=== PATIENT | male | born 2000 | race African-American/Black ===

== ENCOUNTER 2020-07-09 14:55 | Emergency (ER) | payer MEDICAID, SELFPAY ==
[2020-07-09 14:56] VITALS: BP 120/92; PULSE 93; RESP 18; TEMP 36.4; O2SAT 100; BMI 21.7
--- NOTE | 2020-07-09 16:20 | RAD_ITS ---
STUDY: X-RAY - LEFT HAND REASON FOR EXAM: Male, 19 years old. GLASS IN PALM OF HAND TECHNIQUE: 3 view(s) of the hand. COMPARISON: None. FINDINGS: 2.7 mm triangle shaped radiopaque foreign body projects in the soft tissues between the first and second metatarsal bases on the palmar surface. No visualized fracture. Normal radiocarpal articulation. Normal distal radioulnar joint. Normal visualized carpal bones. Normal carpal articulations Normal carpometacarpal articulation of the thumb. Normal second through fifth carpometacarpal joints. Normal metacarpi. Normal metacarpophalangeal joint of the thumb. Normal interphalangeal joint of the thumb. Normal proximal and distal phalanges of the thumb. Normal metacarpophalangeal joints of the second through fifth fingers. Normal proximal and distal interphalangeal joints of the second through fifth fingers. Normal phalanges of the second through fifth fingers. The soft tissue structures are unremarkable. RAD/Hand Min 3 Views IMPRESSION: 1. 2.7 mm triangle shaped radiopaque foreign body projects in the soft tissues between the first and second metatarsal bases on the palmar surface. No visualized fracture. Electronically Signed: Manny Lind MD at 17:43 EDT , Service support ,
[2020-07-09] MEDS: Diphth,Pertuss(Acell),Tet Vac 0.5 ML Vial IM (17:11)
--- NOTE | 2020-07-09 17:18 | ED.VIS.GEN ---
History of Present Illness Chief Complaint: Foreign Body Informant: Patient Onset: Weeks - 3 Narrative: [id number] male presents for wound check and foreign body concerns of left hand. States sustained injury 3 weeks ago while opening up a beer bottle breaking the glass. He is not on anticoagulations. Tetanus at least 10 years. No fevers, he states he has been digging at it, feels like there is something in there. There is been no drainage or redness. No previous similar symptoms. No past medical history. Prior similar symptoms: No Past Medical History - Allergies and Home Meds Allergies/Adverse Reactions: Allergies No Known Allergies Allergy (Verified 07/09/20 14:58) Primary Care Physician: Care Physician,No Primary [Primary Care Provider] - Past Medical History: None Smoking Status: Current some day smoker Review of Systems General: Denies: Chills, Fever, Sweats Eyes: Denies: Visual changes - bilaterally, Diplopia ENT: Denies: Rhinorrhea, Sore throat Cardiovascular: Denies: Chest pain, Palpitations Respiratory: Denies: Dyspnea, Cough, Dyspnea on exertion Gastrointestinal: Denies: Abdominal pain, Nausea, Vomiting, Diarrhea, Melena, Hematochezia Genitourinary: Denies: Dysuria, Hematuria, Frequency Musculoskeletal: Denies: Back pain, Extremity Pain Skin: Reports: Wounds. Denies: Rash Neurological: Denies: Headache, Weakness, Numbness Physical Exam Vital Signs/Narrative: Vital Signs Temp Pulse Resp BP Pulse Ox 07/09/20 14:56 97.5 F L 93 18 120/92 H 100 General: Well nourished, Well developed, No Acute Distress Head: Normocephalic, Atraumatic Eyes: Perrl, EOMI ENT: Moist mucous membranes, No rhinorrhea Neck: Supple, Nontender Cardiovascular: Regular rate, Regular rhythm, No murmurs Respiratory: No distress, CTA bilaterally, Chest nontender Abdomen: Soft, Nontender, Nondistended, Normal bowel sounds Back: Nontender, Normal Inspection Extremities: Nontender, No edema Skin: Normal color, No rash, - - Left hand: Thenar eminence noted a wound with fibrosis, there is a dark spot in the center of the wound. There is no fluctuance no drainage. No erythema. Neurological: Alert, Oriented x3, Cranial nerves II-XII grossly intact, Normal Strength, Normal Sensation Psychological: Normal affect, Normal Mood Diagnostic/Tx/Re-eval 3 view left hand x-ray reviewed by myself: There is a radiopaque foreign body at the thenar aspect of the hand. - Medical Decision Making Patient is tetanus was updated, there is no signs of infection. X-ray reviewed myself concerns for radiopaque foreign body. I discussed potential signs and symptoms for infection. He is given follow-up with Dr. Soto hand specialist for outpatient follow-up and evaluation. All questions were answered. ED Disposition - Plan for ED Patient: Disposition: Home or Assisted Living Diagnosis: Puncture wound, Foreign body of left hand Instructions: ED Foreign Body Soft Tissue, ED Wound Puncture General Referrals: Care Physician,No Primary [Primary Care Provider] - Olivier Soto MD [STAFF PHYSICIAN] - 5-7 Days
== END 2020-07-09 18:17 | disposition home or self-care (01) ==
PROVIDERS: Emergency Provider Emergency Medicine
DX: S61.442A Puncture wound with foreign body of left hand, initial encounter (principal); F17.200 Nicotine dependence, unspecified, uncomplicated; Z23 Encounter for immunization; W26.8XXA Contact with other sharp object(s), not elsewhere classified, initial encounter; Y93.89 Activity, other specified; Y92.89 Other specified places as the place of occurrence of the external cause; Y99.8 Other external cause status
CPT/HCPCS: 73130; 90471; 90715; 99282